=== PATIENT | female | born 1955 | race Caucasian/White ===

== ENCOUNTER 2023-02-25 18:48 | Emergency (ER) | payer MEDICAID ==
[~2023-02-25] VITALS: Ht 154.9 cm; Wt 96.2 kg
[2023-02-25 19:09] LABS: BASO # 0.1 10*3/uL (0.0-0.1); EOS # 0.2 10*3/uL (0.0-0.4); EOS % 2.7 % (1.0-4.0); HEMATOCRIT 37.2 % (37.0-47.0); LYMPH % 28.6 % (27.0-41.0); MEAN CELL VOLUME 86.5 fl (81.0-99.0); MEAN CORPUSCULAR HGB 29.1 pg (27.0-31.0); MEAN CORPUSCULAR HGB CONC 33.6 g/dl (33.0-37.0); MONO # 0.6 10*3/uL (0.1-1.0); MONO % 8.8 % (3.0-9.0); NEUT # 4.1 10*3/uL (2.3-7.9); NEUT % 58.5 % (47.0-73.0); PLATELET COUNT AUTOMATED 310 10*3/uL (130-400); RED CELL DISTRI WIDTH 15.1 % (0-14.5)
[2023-02-25 19:39] LABS: ALKALINE PHOSPHATASE 107 U/L (46-116); BUN 10 mg/dl (9-23); CHLORIDE 108 mmol/L (98-107); SGPT/ALT 15 U/L (10-49); TOTAL PROTEIN 6.8 gm/dL (6.0-8.0)
== END 2023-02-25 21:33 | disposition home or self-care (01) ==
LOC: ED 18:48
PROVIDERS: Nurse Practitioner Family
DX: E87.6 Hypokalemia (principal); E86.0 Dehydration; I10 Essential (primary) hypertension; J44.9 Chronic obstructive pulmonary disease, unspecified; Z88.6 Allergy status to analgesic agent; Z88.8 Allergy status to other drugs, medicaments and biological substances; Z87.891 Personal history of nicotine dependence; V93 Other injury due to accident on board watercraft, without accident to watercraft; Y93.89 Activity, other specified; Y92.89 Other specified places as the place of occurrence of the external cause; Y99.8 Other external cause status